=== PATIENT | female | born 1930 | race Caucasian/White ===

== ENCOUNTER → 2017-08-22 | Outpatient (CLI) | payer MEDICARE, BC, OTHER ==
[2017-08-22 15:55] LABS: HCT 36.9 % (34.0-46.0); HGB 12.3 gm/dL (11.4-16.0); MCH 31.1 pg (25.0-35.0); MCHC 33.5 g/dL (31.0-37.0); MCV 92.9 fL (80.0-100.0); Mean Platelet Volume 6.7; Platelet Count 312 k/uL (150-450); RBC 3.97 m/uL (3.80-5.40); RDW 13.9 % (11.5-15.5); WBC 5.8 k/uL (3.8-10.6)
[2017-08-22 15:56] LABS: Appearance,Urine Clear (Clear); Bilirubin,Urine Negative (Negative); Blood,Urine Negative (Negative); Color,Urine Yellow; Glucose,Urine (UA) Negative (Negative); Ketones,Urine Negative (Negative); Leukocyte Esterase,Urine Negative (Negative); Nitrite,Urine Negative (Negative); PH, Urine 5.5 (5.0-8.0); Protein,Urine Negative (Negative); Specific Gravity,Urine 1.011 (1.001-1.035); Urobilinogen,Urine <2.0 mg/dL (<2.0)
[2017-08-22 16:02] LABS: Partial Thromboplastin Time 22.7 sec (22.0-30.0); Prothrombin Time 9.7 sec (9.0-12.0)
[2017-08-22 16:06] LABS: Albumin 3.9 g/dL (3.5-5.0); Calcium 9.3 mg/dL (8.4-10.2); Potassium 4.5 mmol/L (3.5-5.1); Total Bilirubin 0.3 mg/dL (0.2-1.3); Total Protein 6.1 g/dL (6.3-8.2)
== END | disposition home or self-care (01) ==
LOC: LABPAT 14:49
PROVIDERS: ATTEND Orthopaedic Surgery Sports Medicine
DX: Z01.818 Encounter for other preprocedural examination (principal); Z01.812 Encounter for preprocedural laboratory examination
CPT/HCPCS: 36415; 80053; 81003; 85027; 85610; 85730; 87070; 93005

== ENCOUNTER 2017-09-01 11:09 | Inpatient (IN) | payer MEDICARE, BC, OTHER ==
[2017-08-29 11:49] VITALS: BMI 34.3
[~2017-09-01 11:09] MED LIST: ACETAMINOPHEN TAB 500 MG TAB PO ONE; HYDROmorphone 0.5 MG/0.5 ML SYRINGE IVP PRN; MELOXICAM 7.5 MG TAB PO ONE; ONDANSETRON 4 MG/2 ML VIAL IVP ONE; ROPIVACAINE 246.25 MG, EPINEPHrine 0.5 MG, KETOROLAC 30 MG, cloNIDine HCL/PF 80 MCG, WA... MISCELLANE ONE; TRANEXAMIC ACID 1,000 MG in SODIUM CHLORIDE 0.9% 50 ML IVPB ONE; ceFAZolin IN SWFI 2 GM/20 ML SYRINGE IVP ONE
[2017-09-01] MEDS ORDERED: LIDOCAINE 1% 20 ML VIAL (10MG/ML) FOR IV START INTRADERMA ONE (13:43)
[2017-09-01] MEDS: LACTATED RINGERS 1,000 ML IV SCH ×2 (13:43→17:55)
[2017-09-01] MEDS ORDERED: MIDAZOLAM 2 MG/2 ML VIAL ONE (14:43)
[2017-09-01] MEDS ORDERED: diphenhydrAMINE 50 MG/ML 1 ML VIAL ONE (14:43)
[2017-09-01] MEDS ORDERED: SODIUM CHLORIDE 0.9% 100 ML BAG ONE (14:43)
[2017-09-01] MEDS ORDERED: fentaNYL (PF) 50 MCG/ML 2 ML AMP ONE (14:43)
[2017-09-01] MEDS ORDERED: TRANEXAMIC ACID 1,000 MG/10 ML VIAL ONE (14:43)
[2017-09-01] MEDS ORDERED: CLINDAMYCIN 1,800 MG in SODIUM CHLORIDE 0.9% IRRIGATIO 3,000 ML IRRIGATION ONE (15:17)
[2017-09-01] MEDS ORDERED: HYDROmorphone 0.5 MG/0.5 ML SYRINGE IVP PRN ×3 (15:18)
[2017-09-01] MEDS ORDERED: BISACODYL 10 MG SUPP RECTAL PRN (15:18)
[2017-09-01] MEDS ORDERED: ONDANSETRON 4 MG/2 ML VIAL IVP PRN (15:18)
[2017-09-01] MEDS ORDERED: NALOXONE 0.4 MG/ML 1 ML VIAL IV PRN (15:18)
[2017-09-01] MEDS ORDERED: ACETAMINOPHEN TAB 325 MG TAB PO PRN (15:18)
[2017-09-01] MEDS ORDERED: DIAZEPAM 5 MG TAB PO PRN (15:18)
[2017-09-01] MEDS ORDERED: MAGNESIUM HYDROXIDE 2,400 MG/10 ML CUP PO PRN (15:18)
[2017-09-01] MEDS ORDERED: hydrOXYzine PAMOATE 25 MG CAP PO PRN (15:18)
[2017-09-01] MEDS ORDERED: NA PHOS,M-B/NA PHOS,DI-BA 133 ML ENEMA RECTAL PRN (15:18)
[2017-09-01] MEDS ORDERED: LACTATED RINGERS 1,000 ML IV ONE (16:33)
[2017-09-01] MEDS ORDERED: fentaNYL (PF) 50 MCG/ML 2 ML AMP IVP ONE (17:20)
--- NOTE | 2017-09-01 17:33 | OP ---
OPERATIVE REPORT DATE OF PROCEDURE: 09/01/2017 SURGEON: Mejia Briseno MD PREDATORY HUNTER: Christoph White PA-C PREOPERATIVE DIAGNOSIS: Left knee osteoarthrosis. POSTOPERATIVE DIAGNOSIS: Left knee osteoarthrosis. OPERATION: Left total knee arthroplasty. ANESTHESIA: Spinal with sedation. ESTIMATED BLOOD LOSS: 100 mL. TOURNIQUET TIME: 57 minutes @ 250 mmHg. COMPLICATIONS: None apparent. DRAINS: None. DISPOSITION: Post-Anesthesia Care Unit. INDICATIONS: Gill is a very pleasant 87-year-old female with longstanding history of left knee pain. History and physical examination were consist with advanced left knee osteoarthrosis. She has been through significant non-operative management up to this point. Further treatment options were discussed, and she decided to go forward with left total knee arthroplasty. The risks of the procedure were discussed with her in detail. These risks include but are not limited to risk of infection, nerve damage, bleeding, pain and risk of deep vein thrombosis which could lead to fatal pulmonary embolism. There is also risk of loosening of the implant which could require revision operation. The patient understands these risks. All of her questions were answered to her satisfaction. Appropriate informed consent was obtained. DESCRIPTION OF THE PROCEDURE: The patient was identified in the preoperative holding area. Surgical site was marked by both the patient and myself. She was given 2 grams of Ancef IV for prophylactic purposes. She was then transferred to the operative suite, where she was placed supine on the operating room table. A spinal anesthetic was then administered and dosed per the anesthesia without apparent complication. Examination under anesthesia was then performed. She had 10 degrees shy of full extension. She had 90 degrees of flexion, and the medial collateral ligament, lateral collateral ligament and posterior cruciate ligaments were stable. Tourniquet was then placed high on the left upper thigh, well padded in preparation for surgery. The patient's left lower extremity was then prepped and draped in the usual sterile fashion. Standard surgical pause was undertaken to ensure that we were operating on the correct site and that appropriate preoperative antibiotics had been given. All staff in the room were in agreement and we proceeded. The outlines of the patella were marked with a surgical pen. A planned 12 cm vertical incision centered over the patella was marked with a surgical pen. The leg was then exsanguinated with an Esmarch dressing. The knee was then flexed and the tourniquet was inflated to 250 mmHg. The total tourniquet time for the procedure was 57 minutes. The incision was then made with a 10 blade scalpel. Dissection was carried down sharply to the overlying fascia. Great care was taken to minimize the skin flaps. The knee was then exposed using a standard medial parapatellar approach. A small cuff of quadriceps tendon was left for suturing. She was in a bit of varus preoperatively. A standard medial release was then made. Superficial medial collateral ligament was dissected off the bone around to the posterior aspect of the proximal tibia. The medial meniscus was then excised as well. The lateral meniscus was also released anteriorly. The leg was then externally rotated. The patella was everted and the knee was flexed. The retractors were then placed to protect the collateral ligaments. I then proceeded to remove the infrapatellar fat pad. This was excised sharply tangentially with the fibers of the patellar tendon. I then proceeded to remove the peripheral osteophytes. This was done with a rongeur. I then proceeded with the distal femoral resection. She did have a flexion contracture. A planned 11 mm resection was then done. The femoral canal was then entered in the midline of the femur approximately 10 mm anterior to the origin of the posterior cruciate ligament. The helen was then advanced down the center of the femur and placed intramedullary. Based on preoperative radiographs, the angle between the anatomic and mechanical axis of the femur was approximately 4 to 5 degrees. The valgus angle of the distal femoral cutting guide was set at 4 degrees for the left knee. The distal femoral cutting guide was then advanced over the intramedullary helen. This was seated firmly against the femur. I then, as mentioned, planned to take 11 mm off the distal femur. The cutting block was then secured onto the femur with pins. The jig was then removed and the distal femoral cut was made through the slot of the block. The pins were then removed and the distal femoral cutting block was removed. The accuracy of the distal femoral cuts was checked with 2 flat bars. I then proceeded with femoral sizing. The posterior referencing sizing guide was held firmly against the resected distal surface of the femur. Posterior condyles were resting on the posterior plane of the guide. The sizing stylus was then placed onto the anterior femur. The size was measured as a size 8. I then assessed for femoral rotation. The plan was for 3 degrees of external rotation. Three degrees of external rotation was placed onto the jig. These holes were then marked. I then confirmed the rotation by 3 separate methods. This was done using epicondylar axis as well as Whitesides line and posterior referencing. It was deemed that the external rotation was proper. I then went forward with placing the femoral cutting block. This was placed over the previously placed pin holes. The Bernardo wing was then placed on to the anterior slots to ensure that we would not notch the anterior femur with the anterior femoral cut. I then proceeded with the anterior femoral cut. This was flush with the anterior cortex of the femur. Posterior cuts were then made, followed by the anterior chamfer cut and then the posterior chamfer cut. The cutting block was then removed. Throughout the resection, the collateral ligaments were protected with retractors. I then placed a trial size 8 femur. It was slightly wide mediolateral, but the narrowest was appropriate and it fit flush with the distal end of the femur. The drill holes were then made. I then proceeded with the tibial cut. I planned for a cruciate-retaining knee. The guide was placed and set for varus, valgus and for slope. The height was set for approximate 2 mm resection from the medial tibial plateau, which was the lower side. I was happy with the alignment and the amount of resection. The cutting block was then pinned to the proximal tibia. The alignment helen was removed and the proximal tibia was resected with a reciprocating saw. Again this was done with retractors protecting the collateral ligaments as well as the posterior cruciate ligament. I then proceeded to evaluate the flexion and extension gaps. A 10 mm block was then placed. The flexion and extension gaps were equal. I then proceeded with resection of posterior osteophytes. She had very extensive posterior osteophytes. This was done using a curved osteotome. This resected the posterior osteophytes, and posterior capsule stripping was also done off the posterior aspect of the femur at this time. The osteophytes were then removed. I then proceeded with resection of the patella. The thickness of the patella was measured using a caliper. The thickness was 22 mm. The thickness of the anticipated patellar dome was taken into account. The resection was then performed and confirmed to be equal in 4 quadrants using a caliper. Approximately 14 mm of bone remained after the resection. A 32 x 8.5 mm patellar trial was then placed. The holes were drilled and the trial was then placed. I then proceeded with sizing the tibial plate. A size E tibial plate fit very nicely. I then placed the trial femur tibial tray and the patellar button. A 10 mm trial tibial insert was also placed. The components fit very nicely. She had full extension and flexion. The extension and flexion gaps were equal and stable to both varus and valgus stress. The patella tracked appropriately. The tibial tray rotation was marked with a Bovie. This was externally rotated properly. I then proceed with tibial preparation. I first drilled the femoral holes and removed the femoral component. The tibial tray was then set for proper external rotation as well as mediolateral placement onto the tibia. It was then pinned into place. I then proceeded with punching the keel. I then decided to proceed with cementing of all of our components. The knee was thoroughly irrigated with sterile saline solution via pulse lavage. The lateral geniculate artery was identified and cauterized. All blood was removed from the bone of the tibia, femur and patella with pulse lavage. I then proceeded with cementing. Two packs of antibiotic bone cement were prepared on the back table by the surgical training specialist. I then proceed with cementing of the tibia first. The cement was impacted into the keel as well as deeply seated into the bone. A second coat of cement was then placed. The tibia was then impacted into place. Excess cement was removed with Rimrock's and Joker's. I then proceeded with cementing of the femoral component. The femoral component was also cemented using standard technique. Excess cement was removed. A 10 mm trial insert was then placed into the knee. It was brought into full extension with a constant axial load placed until the cement had hardened. The patellar component was then cemented. This was held firmly with a compressive device until the cement had dried. When the cement had dried, the knee was taken out of extension. All excess cement was removed from around the prosthesis. I then trialed the knee with a 10 mm insert. Flexion and extension gaps were appropriate. I then trialed with a 12 mm insert. The flexion and extension gaps felt much better. The knee was stable with the 12 mm insert. It came into full extension. I decided to go forward with a 12 mm cross- linked cruciate-retaining tibial insert. The polyethylene was then placed onto the tibial tray and locked into place. The knee was then reduced. The knee was again further irrigated with sterile saline solution with antibiotic added. The tourniquet was then deflated. The total tourniquet time for the procedure was 57 minutes @ 250 mmHg. The final components were a Michael Persona size 8 narrow cruciate-retaining femoral component, a size E tibial tray, a 12 mm cruciate-retaining polyethylene insert, and a 32 x 8.5 mm patella. I then proceeded with closure. Again the knee was thoroughly irrigated. The quadriceps tendon and the medial retinaculum were reapproximated with #2 Ethibond suture. The extensor mechanism was then closed with a running #2 Quill suture. Subcutaneous tissues were then closed with 2-0 Vicryl interrupted suture. The skin was closed with a running 3-0 Quill suture. Dermabond was applied to the incision. Sterile compressive dressing was then applied. All sponge and needle counts were deemed correct prior to closure. The patient tolerated the procedure without apparent complication. She was transferred to the recovery room in stable condition. MMODL / IJN: [id number] /
--- NOTE | 2017-09-01 17:36 | XR ---
PROCEDURE: XR knee limited LT 2 views DATE AND TIME: 09/01/2017 5:19 PM REFERRING PHYSICIAN: Christoph White CLINICAL INDICATION: PHH, Evaluation for Postop abnormality and alignment TECHNIQUE: Orthogonal imaging with AP and crosstable lateral views. COMPARISON: None FINDINGS: TKR is in place. Postprocedural changes appreciated, no unexpected postoperative findings. IMPRESSION: Postoperative.
[2017-09-01] MEDS ORDERED: hydrALAZINE HCL 20 MG/ML 1 ML VIAL IVP ONE (17:50)
[2017-09-01] MEDS: HYDROcodone/APAP 7.5-325MG 1 EACH TAB PO PRN (21:42)
[2017-09-01] MEDS: SENNOSIDES-DOCUSATE SODIUM 1 EACH TAB PO SCH (21:42)
[2017-09-01] MEDS: ceFAZolin IN SWFI 2 GM/20 ML SYRINGE IVP SCH (21:42)
[2017-09-01] MEDS: ASPIRIN 325 MG TAB PO SCH (21:42)
[2017-09-01] MEDS: traMADol 50 MG TAB PO PRN (22:53)
[2017-09-02] MEDS: LACTATED RINGERS 1,000 ML IV SCH ×3 (03:52→20:36)
[2017-09-02] MEDS: HYDROcodone/APAP 7.5-325MG 1 EACH TAB PO PRN ×3 (04:25→16:49)
[2017-09-02] MEDS: ceFAZolin IN SWFI 2 GM/20 ML SYRINGE IVP SCH (07:36)
[2017-09-02 08:30] LABS: Basophils % (A) 0 %; Eosinophils # (A) 0.1 k/uL (0-0.7); Eosinophils % (A) 1 %; HGB 11.7 gm/dL (11.4-16.0); Lymphocytes # (A) 1.2 k/uL (1.0-4.8); Lymphocytes % (A) 20 %; MCH 30.8 pg (25.0-35.0); MCHC 32.6 g/dL (31.0-37.0); MCV 94.7 fL (80.0-100.0); Mean Platelet Volume 6.4; Monocytes # (A) 0.4 k/uL (0-1.0); Monocytes % (A) 7 %; Neutrophils # (A) 4.5 k/uL (1.3-7.7); Neutrophils % (A) 71 %; Platelet Count 306 k/uL (150-450); WBC 6.4 k/uL (3.8-10.6)
[2017-09-02] MEDS: ASPIRIN 325 MG TAB PO SCH ×2 (08:32→20:45)
--- NOTE | 2017-09-02 09:12 | P.PN ---
Subjective Progress Note Date: 09/02/17 Principal diagnosis: status post left total knee arthroplasty This is an 87 year-old female post left total knee arthroplasty. This is post- op day 1. The patient was evaluated at the bedside today. The patient denies nausea, vomiting, abdominal pain, shortness of breath, and chest pain this morning. She states her pain is controlled at this time. The patient has been up with physical therapy and is doing well. Objective - Vital Signs Vital signs: Vital Signs Temp 98.2 F 09/02/17 07:08 Pulse 82 09/02/17 07:08 Resp 18 09/02/17 07:08 BP 130/63 09/02/17 07:08 Pulse Ox 95 09/02/17 01:26 Intake & Output 09/01/17 09/02/17 09/02/17 18:59 06:59 18:59 Intake Total 1101 480 Output Total 100 250 Balance 1001 230 Weight 90.718 kg Intake: IV 1101 Oral 480 Output: Urine 250 Estimated Blood Loss 100 Other: Voiding Method Bedside Commode # Voids 1 - Exam The patient does not appear in acute distress. Alert and orientated x3. Dressing is clean dry and intact. Incision appears fine with no erythema or active drainage. Calf is soft and nontender. Good foot and ankle motion without difficulty. Sensation and circulatory status is intact. - Labs CBC & Chem 7: 09/02/17 08:03 Assessment and Plan (1) Primary localized osteoarthritis of left knee Current Visit: Yes Status: Acute Code(s): M17.12 - UNILATERAL PRIMARY OSTEOARTHRITIS, LEFT KNEE SNOMED Code(s): 761902494 (2) Status post total left knee replacement Current Visit: Yes Status: Acute Code(s): Z96.652 - PRESENCE OF LEFT ARTIFICIAL KNEE JOINT SNOMED Code(s): 9166456524799 Plan: 1. Continue pain control 2. Anticoagulation with Aspirin 3. Continue physical therapy and ambulation 4. Anticipate discharge home with homecare tomorrow.
[2017-09-02] MEDS: MULTIVITAMINS, THERA 1 EACH TAB PO SCH (11:15)
[2017-09-02 11:20] LABS: Glucose,Whole Blood 113 mg/dL (75-99)
[2017-09-02] MEDS: traMADol 50 MG TAB PO PRN ×2 (14:09→20:44)
[2017-09-02] MEDS: TEMAZEPAM 15 MG CAP PO PRN (20:45)
[2017-09-02] MEDS: SENNOSIDES-DOCUSATE SODIUM 1 EACH TAB PO SCH (20:45)
--- NOTE | 2017-09-02 22:04 | CONS ---
CONSULTATION DATE OF CONSULTATION: 09/02/2017 REASON FOR CONSULTATION: Medical management requested by Dr. Briseno. CONSULTATION: This is a pleasant 87-year-old patient who follows with Dr. So. Chronic stable medical conditions include osteoarthritis, insomnia, urinary incontinence. The patient underwent left total knee arthroplasty. Some pain is present. No nausea or vomiting. No chest pain or shortness of breath. Did tolerate her breakfast this morning. Lying in bed. Has been out of bed. No new issues. REVIEW OF SYSTEMS: CONSTITUTIONAL: None. HEENT: None. RESPIRATORY: None. CARDIOVASCULAR: None. GASTROINTESTINAL: None. GENITOURINARY: Urinary incontinence. DERMATOLOGICAL: None. HEMATOLOGICAL: None. LYMPHATICS: None. PSYCHIATRY: None. NEUROLOGICAL: Trouble sleeping sometimes. MUSCULOSKELETAL: Arthritic pain, especially in the hands. PAST MEDICAL HISTORY: 1. Osteoarthritis. 2. Insomnia. 3. Urinary incontinence. 4. Minor varicose veins. PAST SURGICAL HISTORY: 1. Appendectomy. 2. Hernia repair. 3. Tonsillectomy. 4. Ovarian cyst removed. SOCIAL HISTORY: Does not smoke. Alcohol occasionally. Lives with her daughter. FAMILY HISTORY: DVT and PE. HOME MEDICATIONS: 1. Ultram 50 mg q.6 p.r.n. 2. Vitamin E 400 units p.o. daily. 3. CO-Q-10 100 mg p.o. daily. 4. Turmeric root extract 500 mg p.o. daily. 5. Thyrotone 1 tablet p.o. daily. 6. Fish oil 1000 mg 1 capsule p.o. daily. 7. Magnesium 200 mg p.o. daily. 8. Probiotic 1 capsule p.o. daily. 9. Advil PM liquid gel 2 capsules p.o. at bedtime p.r.n. 10.Glucosamine chondroitin 1 tablet p.o. q.12. 11.Ginseng 100 mg p.o. daily. 12.Ginkgo 60 mg p.o. daily. 13.Echinacea 400 mg p.o. daily. 14.Vitamin D3 1000 units p.o. daily. 15.Z-Bec 1 tablet p.o. daily. 16.Aspirin 1000 mg p.o. daily. 17.[place] 7.5 one to two tablets q.6 p.r.n. 18.Colace 100 mg p.o. b.i.d. ALLERGY: PENICILLIN. PHYSICAL EXAMINATION: Temperature 98.2, pulse 82, respiration 18, blood pressure 130/63, pulse ox 95% on room air. GENERAL APPEARANCE: Well built; BMI 34.3. Lying in bed, comfortable. EYES: Pupils equal. Conjunctivae normal. HEENT: External appearance of nose and ears normal. Oral cavity normal. NECK: JVD not raised. Mass not palpable. RESPIRATORY: Effort normal. Lungs are clear. CARDIOVASCULAR: First and second sounds normal. No edema. ABDOMEN: Soft, non-tender. Liver and spleen not palpable. LYMPHATIC: No lymph node palpable in neck or axillae. PSYCHIATRY: Alert and oriented x3. Mood and affect normal. NEUROLOGICAL: Pupils equal. Cranial nerves grossly intact. Power and sensation grossly intact. MUSCULOSKELETAL: Evidence of osteoarthritis, especially in the hands. INVESTIGATIONS: White count 6.4, hemoglobin 11.7. ASSESSMENT: 1. Left total knee arthroplasty. 2. Primary osteoarthritis, especially in both the hands. 3. Chronic mild insomnia. 4. Chronic urinary stress incontinence. 5. Baseline gait dysfunction; uses a cane. 6. Obesity; body mass index 34.3. PLAN: Patient is doing better, getting IV fluids, getting aspirin for DVT prophylaxis. Pain control is in place. Care was discussed with the patient. Questions were answered. Thank you, Dr. Briseno. MMELVIRAL / BRITTANEYN: [id number] /
[2017-09-03] MEDS: HYDROcodone/APAP 7.5-325MG 1 EACH TAB PO PRN ×3 (05:11→18:09)
[2017-09-03] MEDS: LACTATED RINGERS 1,000 ML IV SCH ×3 (08:14→21:12)
[2017-09-03] MEDS: ASPIRIN 325 MG TAB PO SCH ×2 (08:29→21:51)
--- NOTE | 2017-09-03 10:13 | P.PN ---
Subjective Progress Note Date: 09/03/17 This is an 87-year-old female who is status post left total knee arthroplasty. This is postoperative day #1. Patient states that her pain is well controlled and she has been up and walking with physical therapy. Patient denies any new symptoms or complaints today. Patient denies any fever/chills, numbness, weakness, tingling, abdominal pain, shortness of breath or chest pain. Objective - Vital Signs Vital signs: Vital Signs Temp 97.9 F 09/03/17 08:18 Pulse 80 09/03/17 08:18 Resp 16 09/03/17 08:18 BP 123/68 09/03/17 08:18 Pulse Ox 93 L 09/03/17 08:18 Intake & Output 09/02/17 09/03/17 09/03/17 18:59 06:59 18:59 Intake Total 400 680 Output Total 325 Balance 400 355 Weight 90.718 kg Intake: Intake, IV Titration 200 Amount Lactated Ringers 1,000 ml 200 @ 75 mls/hr IV .[id number] KOMAL Rx#:[id number] Oral 200 680 Output: Urine 325 Other: Voiding Method Bedside Commode # Voids 3 2 - Exam Vital signs are stable. Patient is in no acute distress and is alert and oriented 3. Calf is soft and nontender to palpation. Dressing is clean, dry, and intact. Patient has full foot and ankle motion without pain or difficulty. Neurovascular status and circulatory status are intact. - Labs CBC & Chem 7: 09/02/17 08:03 Labs: Abnormal Lab Results - Last 24 Hours (Table) 09/02/17 Range/Units 11:12 POC Glucose (mg/dL) 113 H (75-99) mg/dL Assessment and Plan (1) Primary localized osteoarthritis of left knee Current Visit: Yes Status: Acute Code(s): M17.12 - UNILATERAL PRIMARY OSTEOARTHRITIS, LEFT KNEE SNOMED Code(s): 275463421 (2) Status post total left knee replacement Current Visit: Yes Status: Acute Code(s): Z96.652 - PRESENCE OF LEFT ARTIFICIAL KNEE JOINT SNOMED Code(s): 3352511119893 Plan: #1 Continue with routine postoperative care, daily dressing changes. #2 Anticoagulation with aspirin. #3 Physical therapy today. #4 Appreciate input from medicine. #5 Anticipate discharge home with home care likely tomorrow.
[2017-09-03] MEDS: MULTIVITAMINS, THERA 1 EACH TAB PO SCH (12:25)
--- NOTE | 2017-09-03 20:53 | PN ---
PROGRESS NOTE DATE OF SERVICE: 09/03/2017 PRESENT COMPLAINT: Arthroplasty. INTERVAL HISTORY: Patient is status post knee surgery. Pain is better controlled. No nausea, vomiting. Some spasm is present, did tolerate a diet. No new issues. Working with Therapy. REVIEW OF SYSTEMS: Done for constitutional, cardiovascular, GI, pulmonary; relevant findings as above. CURRENT MEDICATIONS: Reviewed. EXAMINATION: Temperature 97.9, pulse 80, respirations 16, blood pressure 122/68, pulse ox 93% on room air. GENERAL APPEARANCE: Sitting up, comfortable. EYES: Pupils equal. Conjunctivae normal. HEENT: External appearance of nose and ears normal. Oral cavity normal. NECK: JVD not raised. Mass not palpable. RESPIRATORY: Effort normal. Lungs are clear. CARDIOVASCULAR: First and second sounds normal. No edema. ABDOMEN: Soft, nontender. Liver and spleen not palpable. PSYCHIATRY: Alert and oriented x3. Mood and affect normal. MUSCULOSKELETAL: Dressing over the left knee. Mild edema. INVESTIGATIONS: No blood work from today. ASSESSMENT: 1. Left total knee arthroplasty. 2. Primary osteoarthritis, especially in both the hands. 3. Chronic mild insomnia. 4. Chronic urinary stress incontinence. 5. Baseline gait disorder, uses a cane. 6. Obesity, BMI 34.3. PLAN: Care was discussed with the patient. The patient doing better. MMODL / IJN: [id number] /
[2017-09-03] MEDS: SENNOSIDES-DOCUSATE SODIUM 1 EACH TAB PO SCH (21:51)
[2017-09-03] MEDS: TEMAZEPAM 15 MG CAP PO PRN (21:55)
[2017-09-04] MEDS: HYDROcodone/APAP 7.5-325MG 1 EACH TAB PO PRN ×3 (01:21→12:57)
[2017-09-04 07:10] LABS: Basophils % (A) 1 %; Eosinophils # (A) 0.2 k/uL (0-0.7); Eosinophils % (A) 3 %; HGB 11.4 gm/dL (11.4-16.0); Lymphocytes # (A) 1.5 k/uL (1.0-4.8); Lymphocytes % (A) 29 %; MCH 30.3 pg (25.0-35.0); MCHC 32.5 g/dL (31.0-37.0); MCV 93.3 fL (80.0-100.0); Mean Platelet Volume 6.8; Monocytes # (A) 0.4 k/uL (0-1.0); Monocytes % (A) 7 %; Neutrophils % (A) 58 %; Platelet Count 275 k/uL (150-450); RBC 3.76 m/uL (3.80-5.40); RDW 13.4 % (11.5-15.5); WBC 5.1 k/uL (3.8-10.6)
[2017-09-04 07:43] VITALS: RESP 16; TEMP 97.5
[2017-09-04] MEDS: LACTATED RINGERS 1,000 ML IV SCH ×2 (07:44→10:36)
[2017-09-04] MEDS: ASPIRIN 325 MG TAB PO SCH (07:47)
--- NOTE | 2017-09-04 10:14 | P.DS ---
Providers Date of admission: 09/01/17 13:11 Expected date of discharge: 09/04/17 Attending physician: Mejia Briseno Consults: 09/01/17 15:18 Consult Physician Routine Consulting Provider: Olegario Louis Consult Reason/Comments: post op medical management Do you want consulting provider notified?: Yes Primary care physician: Emigdio So - Discharge Diagnosis(es) (1) Primary localized osteoarthritis of left knee Current Visit: Yes Status: Acute (2) Status post total left knee replacement Current Visit: Yes Status: Acute Hospital Course: This is a 87-year-old female with known history of degenerative arthritis of the left knee. The patient presents for evaluation. After discussion and consideration patient elects to proceed with total knee arthroplasty. The patient is seen preoperatively by Dr. Briseno and medically cleared for surgery by their primary care physician. Patient is admitted to [facility] on 09/01/2017 for total knee arthroplasty. The procedures performed without complication or sequelae. The patient is doing well postoperatively. Labs and vital signs are stable on day of discharge. On day of discharge patient's knee incision is healing well. There is minimal erythema. There is no drainage noted at this time. There is minimal soft tissue swelling to the knee. Patient has full foot and ankle motion without difficulty or pain. Neurovascular status to the left lower extremity is intact. Patient is discharged home in good condition. Please see med rec for accurate list of home medications. Plan - Discharge Summary Discharge Rx Participant: Yes New Discharge Prescriptions: New Aspirin 325 mg PO BID #60 tab Docusate [Colace] 100 mg PO BID #60 capsule HYDROcodone/APAP 7.5-325MG [[place]olla 7.5-325] 1 - 2 tab PO Q6HR PRN #60 tab PRN Reason: Pain No Action Echinacea 400 mg PO DAILY B Complex-Vit C-Vit E-Zinc [Z-Bec] 1 tab PO DAILY Whiting-3 Fatty Acids/Fish Oil [Fish Oil 1,000 mg Softgel] 1 cap PO DAILY Glucosamine-Chondr 500-400Mg 1 tab PO Q12HR Vitamin E (Dl,Tocopheryl Acet) [Vitamin E] 400 unit PO DAILY Aspirin [Aspirin EC] 1,000 mg PO DAILY Thyrotone (Supplement) 1 tab PO DAILY Cholecalciferol [Vitamin D3] 1,000 unit PO DAILY Ginkgo Biloba [place] Extract [Ginkgo] 60 mg PO DAILY Ginseng 100 mg PO DAILY Ibuprofen/Diphenhydramine HCl [Advil Pm Liqui-Gels] 2 cap PO HS PRN PRN Reason: PAIN, INSOMNIA L.acidoph,Paracasei, B.lactis [Probiotic] 1 cap PO DAILY traMADol HCL [Ultram] 50 mg PO Q6HR PRN PRN Reason: Pain Ubidecarenone [Co Q-10] 100 mg PO DAILY Turmeric Root Extract [Turmeric] 500 mg PO DAILY Magnesium 200 mg PO DAILY Discharge Medication List Aspirin [Aspirin EC] 1,000 mg PO DAILY 08/29/17 [History] B Complex-Vit C-Vit E-Zinc [Z-Bec] 1 tab PO DAILY 08/29/17 [History] Cholecalciferol [Vitamin D3] 1,000 unit PO DAILY 08/29/17 [History] Echinacea 400 mg PO DAILY 08/29/17 [History] Ginkgo Biloba [place] Extract [Ginkgo] 60 mg PO DAILY 08/29/17 [History] Ginseng 100 mg PO DAILY 08/29/17 [History] Glucosamine-Chondr 500-400Mg 1 tab PO Q12HR 08/29/17 [History] Ibuprofen/Diphenhydramine HCl [Advil Pm Liqui-Gels] 2 cap PO HS PRN 08/29/17 [ History] L.acidoph,Paracasei, B.lactis [Probiotic] 1 cap PO DAILY 08/29/17 [History] Whiting-3 Fatty Acids/Fish Oil [Fish Oil 1,000 mg Softgel] 1 cap PO DAILY [History] Thyrotone (Supplement) 1 tab PO DAILY 08/29/17 [History] Ubidecarenone [Co Q-10] 100 mg PO DAILY 08/29/17 [History] Vitamin E (Dl,Tocopheryl Acet) [Vitamin E] 400 unit PO DAILY 08/29/17 [History] traMADol HCL [Ultram] 50 mg PO Q6HR PRN 08/29/17 [History] Aspirin 325 mg PO BID #60 tab 09/01/17 [Rx] Docusate [Colace] 100 mg PO BID #60 capsule 09/01/17 [Rx] HYDROcodone/APAP 7.5-325MG [Corolla 7.5-325] 1 - 2 tab PO Q6HR PRN #60 tab [Rx] Magnesium 200 mg PO DAILY 09/01/17 [History] Turmeric Root Extract [Turmeric] 500 mg PO DAILY 09/01/17 [History] Follow up Appointment(s)/Referral(s): [facility], [NON-STAFF] - Mejia Briseno MD [STAFF PHYSICIAN] - 2 Weeks (Office closed patient to call tuesday to make appointment) Patient Instructions/Handouts: Knee Replacement (DC) Activity/Diet/Wound Care/Special Instructions: Keep wound clean and dry Take meds as directed Follow-up with Dr. Briseno in office Weight bear as tolerated May shower in 3 days if no bleeding Discharge Disposition: HOME WITH HOME HEALTH SERVICES
[2017-09-04 11:25] VITALS: BP 131/68; PULSE 83
[2017-09-04] MEDS: MULTIVITAMINS, THERA 1 EACH TAB PO SCH (13:01)
== END 2017-09-04 14:14 | disposition home health service (06) | DRG 470 ==
LOC: 2ORMAIN 13:11 → 3SUR 17:48
PROVIDERS: ADMIT Orthopaedic Surgery Sports Medicine; ATTEND Orthopaedic Surgery Sports Medicine
PROC: 0SRD0J9 Replacement of Left Knee Joint with Synthetic Substitute, Cemented, Open Approach (ICD-10-PCS; principal; 2017-09-01 16:00)
DX: M17.12 Unilateral primary osteoarthritis, left knee (principal); E66.9 Obesity, unspecified; F51.04 Psychophysiologic insomnia; N39.3 Stress incontinence (female) (male); I83.90 Asymptomatic varicose veins of unspecified lower extremity; M19.042 Primary osteoarthritis, left hand; M19.041 Primary osteoarthritis, right hand; K21.9 Gastro-esophageal reflux disease without esophagitis; R26.9 Unspecified abnormalities of gait and mobility; Z68.34 Body mass index [BMI] 34.0-34.9, adult; Z87.442 Personal history of urinary calculi; Z88.0 Allergy status to penicillin; Z79.82 Long term (current) use of aspirin; Z79.899 Other long term (current) drug therapy; Z90.49 Acquired absence of other specified parts of digestive tract
CPT/HCPCS: 85025; 88300